=== PATIENT | female | born 1985 | race African-American/Black ===

== ENCOUNTER 2021-11-12 07:16 | Inpatient (IN) ==
--- NOTE | 2021-11-10 14:18 | Anesthesiology Consultation ---
Date of Service November 10, 2021 Assessment & Plan (1) Encounter for pre-operative examination: - COVID screening: Per supplier quality specialist on 11/10/2021: Travel screen negative, no known COVID-19 positive contacts or current COVID-19 related symptoms in past 2 weeks. Patient vaccinated. Surgeon arranging preop COVID testing, scheduled 11/10/2021. Awaiting results. Chart Review Chart Review: entry level web developer initiated History Surgery Operation Date: 11/12/21 07:30 Proposed Procedures p Section (Delivery of Baby Through Abdominal Incision) - Jennifer Ndiaye MD, FACOG Height/Weight Height: 5 ft 2.99 in Weight: 109.769 kg Allergies Allergy/AdvReac Type Severity Reaction Status Date / Time No Known Allergies Allergy Verified 11/10/21 10:46 Medications Home Medications Medication Instructions Recorded Confirmed Last Taken vits no.124-ferrous fum 1 tab PO QAM 04/09/21 11/10/21 04/09/21 27 mg iron-folic acid 800 mcg tablet ( Vitamin) aspirin 81 mg tablet,delayed 81 mg PO UD PRN 07/02/21 11/10/21 Unknown release (Adult Aspirin Regimen) Past Medical History Medical History (Updated 11/10/21 @ 14:17 by Albania Camejo PA-C) Cervical polyp High risk HPV infection History of chicken pox History of COVID-11 August 2020. mild symptoms Hx of tuberculosis 2018, treated for ~6 months, no problems current. Prior complicated by PIH, antepartum Past Family History Family History Mother Hypertension Other No family history of adverse response to anesthesia Denies family history of Ovarian cancer Breast cancer Colorectal cancer Past Surgical History Surgical History (Updated 11/10/21 @ 14:17 by Albania Camejo PA-C) H/O section History of unilateral salpingectomy Right (due to mass), via laparotomy Previous delivery affecting , antepartum Social History Smoking Status: Never smoker Do You Dip or Chew Tobacco: No Hx Alcohol Use: No Hx Substance Use: No substance use type: does not use
--- NOTE | 2021-11-11 23:10 | History & Physical Report ---
Date of Service November 11, 2021 Assessment & Plan (1) Previous delivery affecting , antepartum: Plan: IUP at 39 weeks, breech presentation wiht prior section for breech presentation history of gestational HTN- but normotensive this The procedure and it's risks are reviewed with the patient and her and their questions were answered to their satisfaction and they are willing to proceed . History of Present Illness Primary Care Provider: [facility] patient is a 35 yo -lao female EDC 11/19/21 who presents at 39 weeks for repeat section. first section was done in [facility] for breech presentation. Because operative reports are not available , she is not a candidate for a trial of labor. this infant is also in breech presentation at this time. has also been complicated by AMA, and HGSIL. She had gestational HTN with her first and has been on low dose aspirin as a result. BP has been normal this . Allergies Allergy/AdvReac Type Severity Reaction Status Date / Time No Known Allergies Allergy Verified 11/11/21 13:24 Home Medications Medication Instructions Recorded Confirmed Type vits no.124-ferrous fum 1 tab PO QAM 04/09/21 11/11/21 History 27 mg iron-folic acid 800 mcg tablet ( Vitamin) aspirin 81 mg tablet,delayed 81 mg PO UD PRN 07/02/21 11/11/21 History release (Adult Aspirin Regimen) Patient History Medical History (Updated 11/10/21 @ 14:17 by Albania Camejo PA-C) Cervical polyp High risk HPV infection History of chicken pox History of COVID-11 August 2020. mild symptoms Hx of tuberculosis 2018, treated for ~6 months, no problems current. Prior complicated by PIH, antepartum Surgical History (Updated 11/10/21 @ 14:17 by Albania Camejo PA-C) H/O section History of unilateral salpingectomy Right (due to mass), via laparotomy Previous delivery affecting , antepartum Family History Mother Hypertension Other No family history of adverse response to anesthesia Denies family history of Ovarian cancer Breast cancer Colorectal cancer Social History (Updated 04/16/21 @ 14:24 by Tami Mack) Smoking Status: Never smoker Second Hand Exposure: No; Hx Alcohol Use: No Hx Substance Use: No Preferred Language: Slovak Communication Ability: Effective Glue Drier Operator Required: No Beliefs That Will Affect Care: None marital status: marital status details: Florentino (38) Current Living Situation: Family current occupational status: student current occupation: PhD student [employer] Feels Safe at Home: Yes Assistive Devices: None Review of Systems All systems reviewed & are unremarkable except as noted in HPI & below Physical Exam Constitutional: WD/WN, vitals as above Respiratory: normal respiratory effort, lungs clear to auscultation Cardiovascular: RRR, no murmur, no edema Psychiatric: A+Ox3, euthymic affect Genitourinary: OB Exam Abdomen: + fundal height (term) and + breech OB Exam Monitor Tracing: + external FHT monitor used, + external uterine monitor used, + category I and + normal FHT variability NST today doesn't meet criteria for reactive but BPP is 8/8 Coding Level of Care Code None Diagnoses Previous delivery affecting , antepartum O34.219
[2021-11-12] MEDS ORDERED: LACTATED RINGER'S 1,000 ML IV SCH ×2 (07:30→08:30)
[2021-11-12] MEDS ORDERED: CITRIC ACID/SODIUM CITRATE 15 ML UDC PO SCH (07:45)
[2021-11-12 08:12] LABS: Basophils # (auto) 0.01 K/uL (0-0.2); Basophils % (auto) 0.2 %; Eosinophils # (auto) 0.05 K/uL (0-0.5); Eosinophils % (auto) 0.8 %; Hematocrit (blood only) 36.9 % (37-47); Hemoglobin 12.9 g/dL (12.0-16.0); Immature Granulocytes # (auto) 0.03 K/uL (0.00-0.02); Immature Granulocytes % (auto) 0.5 %; Lymphocytes % (auto) 31.6 %; Mean Corpuscular Hemoglobin 30.9 pg (25-34); Mean Corpuscular Volume 88.5 fL (80-100); Mean Platelet Volume 9.2 fL (7.4-10.4); Monocytes % (auto) 9.5 %; Neutrophils # (auto) 3.64 K/uL (1.4-6.5); Neutrophils % (auto) 57.4 %; Platelet Count 248 K/uL (130-400); RDW Coefficient of Variation 13.2 % (11.5-14.5); RDW Standard Deviation 42.8 fL (36.4-46.3); Red Blood Count 4.17 M/uL (4.2-5.4); White Blood Count 6.33 K/uL (4.8-10.8)
--- NOTE | 2021-11-12 09:33 | History & Physical Bridge Note ---
Date of Service November 12, 2021 History & Physical Bridge Note I have examined the patient, reviewed the History & Physical and in the interval since the performance of the History & Physical I have noted the following changes of clinical significance: no changes noted
[2021-11-12] MEDS ORDERED: fentaNYL citrate 100 MCG/2 ML VIAL ONE (09:38)
[2021-11-12] MEDS ORDERED: ONDANSETRON INJ 2 MG/ML 2 ML VIAL ONE (09:38)
[2021-11-12] MEDS ORDERED: MoRPHine SULFATE PF 1 MG/ML 10 ML AMP/VIAL ONE (09:38)
[2021-11-12] MEDS ORDERED: OXYTOCIN 10 UNITS/ML 10ML VIAL ONE (09:38)
[2021-11-12] MEDS ORDERED: NALOXONE HCL 0.08 MG in SYRINGE 1.8 ML IV PRN (10:51)
[2021-11-12] MEDS ORDERED: NALOXONE HCL 1 MG in SODIUM CHLORIDE 0.9% 1000ML 1,000 ML IV PRN (10:51)
[2021-11-12] MEDS ORDERED: PROMETHAZINE HCL 25 MG in SODIUM CHLORIDE 0.9% 50 ML IV PRN (10:51)
[2021-11-12] MEDS ORDERED: ePHEDrine sulfate 50 MG/ML AMP IV PRN (10:51)
[2021-11-12] MEDS ORDERED: ONDANSETRON INJ 2 MG/ML 2 ML VIAL IV PRN (10:51)
[2021-11-12] MEDS ORDERED: NALBUPHINE HCL INJ 10 MG/ML AMP IV PRN (10:51)
[2021-11-12] MEDS ORDERED: HYDROmorphone INJ 0.5 MG/0.5 ML SYR IV PRN (10:51)
[2021-11-12] MEDS ORDERED: ACETAMINOPHEN 1000 MG/100 ML IV IV PRN (10:51)
[2021-11-12] MEDS ORDERED: diphenhydrAMINE 50 MG/ML VIAL IV PRN (10:51)
[2021-11-12] MEDS ORDERED: LACTATED RINGER'S 500 ML IV PRN (10:51)
[2021-11-12] MEDS ORDERED: NALOXONE HCL 0.4 MG/1 ML VIAL/CARP IV PRN (10:51)
[2021-11-12] MEDS ORDERED: MoRPHine SULFATE PF 1 MG/ML 10 ML AMP/VIAL INT SPINAL ONE (10:51)
[2021-11-12] MEDS ORDERED: KETOROLAC 30 MG/ML VIAL ONE (10:57)
[2021-11-12] MEDS ORDERED: SODIUM CHLORIDE 0.9% 1000ML 1,000 ML IV SCH (11:00)
[2021-11-12] MEDS ORDERED: DC INTRASPINAL MORPHINE SCH (11:00)
[2021-11-12] MEDS ORDERED: NO NARCOTICS OR SEDATIVES SCH (11:00)
[2021-11-12] MEDS ORDERED: MAGNESIUM HYDROXIDE SUSP 30 ML UDC PO PRN (11:42)
[2021-11-12] MEDS ORDERED: DIPHTHERIA/TETANUS/PERTUSSIS 0.5 ML SYR/VIAL IM ONE (11:42)
[2021-11-12] MEDS ORDERED: SENNA 8.6 MG TAB PO PRN (11:42)
[2021-11-12] MEDS ORDERED: ACETAMINOPHEN 325 MG TAB PO PRN (11:42)
[2021-11-12] MEDS ORDERED: HYDROCORTISONE ACETATE 25 MG SUPP PR PRN (11:42)
[2021-11-12] MEDS ORDERED: BENZOCAINE 20% AER SPR 82.5 GM CAN EXT PRN (11:42)
--- NOTE | 2021-11-12 13:03 | Operative Report ---
PG Post Operative Report Pre & Post Diagnosis Operation Date: 11/12/21 09:30 Pre-Op Diagnosis: Prior section Breech presentation Post-Op Diagnosis: Same as Pre op I identified the patient and participated in the time-out.: Yes Procedure Operation Date: 11/12/21 09:30 Actual Procedures p Section (Delivery of Baby Through Abdominal Incision); Live female child at 1054(Bilateral) - Jennifer Ndiaye MD, FACOG Surgeon Jennifer Ndiaye MD, FACOG Induction Coordination Power Engineer Keysha Loving MD Estimated Blood Loss 300 Findings Consistent with Post-Op Diagnosis gravid uterus , normal ovaries bilaterally. left fallopian tube is normal, right fallopian tube is absent except for the distal fimbriated end. Specimens placenta to hold Drains Jason to straight drainage- clear urine at the end of the case Anesthesia Type Spinal Complications none Disposition Accompanied Patient To Recovery: Yes Indications Patient is a 35-year-old -0-0-1 female who presents at 39 weeks for repeat section. Her primary section was done in [facility] and therefore the operative report cannot be obtained. She is scheduled for repeat section and incidentally the baby is in breech presentation. Description of Procedure After the patient received adequat spinal anesthetic, she was prepped and draped in the usual sterile fashion. A low transverse skin incision was made approximately 3 cm superior to her prior scar per patient's request. The incision was extended to the fascia with the scalpel. The fascia was then divided transversely with Marroquin scissors. The edges were then grasped with Otoniel clamps and the underlying rectus muscles bluntly and sharply dissected off of the overlying fascia. The rectus muscles were bluntly divided in the midline and the underlying peritoneum elevated and entered sharply. The bladder was then taken down off the anterior surface of the uterus with Metzenbaum scissors. The lower uterine segment was noted to be thin but not transparent. A incision was made in the lower uterine segment with the scalpel and extended transversely. Membranes were ruptured for clear fluid. The was delivered from the double footling breech presentation with moderate fundal pressure. There was a tight nuchal cord which was reduced upon delivery. It was a female infant and she was crying and vigorous upon delivery. After 40 seconds the cord was clamped and cut and the handed off to Dr. Chu who was in attendance as director corporate sales. The placenta was then expressed intact with a three-vessel cord and the uterus is exteriorized to cover the clean lap sponge. The uterine cavity was explored found be free of any placental tissue or membranes. The uterus was then closed in 2 layers in a running locking imbricating fashion with 0 chromic. Hemostasis was noted to be satisfactory on the incision. The posterior cul-de-sac was suctioned for small amount of bloody fluid. The incision was examined once more continue to have excellent hemostasis. The uterus was placed back inside the abdominal cavity. There was noted some bleeding coming from the posterior and superior left rectus muscle. Bleeding there was controlled with Bovie. Hemostasis now appeared to be excellent. The rectus muscles were brought together in the midline with individual stitches of 0 chromic. The fascia was then closed in a running fashion with 0 Vicryl. After irrigating the adipose layer, the skin edges were reapproximated using a subcuticular stitch of 4-0 Vicryl. Urine was clear at the end of the case mother and infant tolerated the procedure well. I attest to the content of the Intraoperative Record and any orders documented therein. Any exceptions are noted below. OB Procedure Charges [id number]
[2021-11-12] MEDS: OXYTOCIN 20 UNITS in LACTATED RINGER'S 1,000 ML IV SCH ×2 (13:16→21:54)
[2021-11-12] MEDS: KETOROLAC 30 MG/ML VIAL IV PRN ×2 (15:54→21:52)
[2021-11-12] MEDS: SIMETHICONE 80 MG CHEW PO SCH ×2 (17:47→21:54)
[2021-11-12] MEDS: DOCUSATE SODIUM 100 MG CAP PO SCH (21:54)
[2021-11-13] MEDS: KETOROLAC 30 MG/ML VIAL IV PRN (03:40)
[2021-11-13] MEDS ORDERED: LACTATED RINGER'S 1,000 ML IV SCH (04:00)
[2021-11-13] MEDS ORDERED: ONDANSETRON INJ 2 MG/ML 2 ML VIAL IV PRN (04:53)
[2021-11-13] MEDS ORDERED: PROMETHAZINE HCL 25 MG in SODIUM CHLORIDE 0.9% 50 ML IV PRN (04:53)
[2021-11-13] MEDS ORDERED: diphenhydrAMINE Capsule 25 MG CAP PO PRN (04:53)
[2021-11-13] MEDS ORDERED: diphenhydrAMINE 50 MG/ML VIAL IV PRN (04:53)
--- NOTE | 2021-11-13 06:32 | Obstetrical Progress Note ---
Date of Service <Keysha InderDO - Last Filed: 11/13/21 07:38> November 13, 2021 Assessment & Plan <Keysha Loving DO - Last Filed: 11/13/21 07:38> (1) Encounter for care and examination after delivery: 35 yo post op day1 from c/s with prior c/s, doing well. -Continue routine post care. -vital signs reviewed and WNL (Tmax 36.6) -Blood Type B+, GBS-, Rubella immune -Encourage ambulation, monitor and control pain with Motrin, tylenol PRN, resume regular diet, monitor lochia -encourage breast feeding -hemoglobin 12.9 Day #:: 1 <Jennifer Ndiaye MD, FACOG - Last Filed: 11/13/21 11:12> (1) Encounter for care and examination after delivery: Subjective <Keyshadavid Loving DO - Last Filed: 11/13/21 07:38> Ambulation: ambulating normally Voiding: no voiding problems Passing Gas:: Yes Diet Tolerance:: regular diet Lochia:: Small Feeding Type:: breast feeding Current Pain Level(1-10): 3 Review of Systems Denies fever, chills, sweats Denies shortness of breath, difficulty breathing, chest pain, palpitations, chest pressure. Denies breast pain. Denies dysuria. Denies headache or changes in vision. Physical Exam <Keysha InderDO - Last Filed: 11/13/21 07:38> General: Alert, oriented. No acute distress. Cardiac: Regular rate and rhythm, no murmurs/rubs/gallops. Respiratory: Clear to auscultation bilaterally a/p, no wheezes/rales/rhonchi. No increased work of breathing. Symmetrical chest rise. No respiratory distress. Abdomen: Soft, nontender, nondistended. Bowel sounds present. Uterus: Uterine fundus firm, palpable at umbilicus. Surgical scar clean and healing well. Lower Extremities: No lower extremity edema or swelling. No deep calf pain. Geoff's negative bilaterally. Results & Data ([facility]) <Keysha Loving DO - Last Filed: 11/13/21 07:38> Vital Signs (Past 12 Hours) Vital Signs Temp Pulse Resp BP Pulse Ox 11/13/21 05:00 18 98 04/23/22 04:00 18 99 11/13/21 03:37 36.6 C 67 16 122/71 95 11/13/21 03:00 18 98 11/13/21 02:00 18 98 11/13/21 01:00 18 99 11/13/21 00:30 18 99 11/12/21 23:30 18 98 11/12/21 23:12 36.5 C 66 16 113/67 97 11/12/21 22:25 18 97 11/12/21 21:30 18 99 11/12/21 20:30 18 98 11/12/21 19:30 18 96 11/12/21 19:20 36.4 C L 56 L 16 111/69 98 <Jennifer Ndiaye MD, FACOG - Last Filed: 11/13/21 11:12> Co-Signing Physician Notes Resident Physician Supervision Note: I interviewed and examined the patient. Discussed with Dr. Loving and agree with findings and plan as documented in the note. Any exceptions or clarifications are listed here: [None] Documented By: Jennifer Ndiaye MD, FACOG Resident Activity Tracking <Keysha Loving DO - Last Filed: 11/13/21 07:38> Resident Involvement: Resident Care Provided Care Provided: Adult Hospital Medicine and OB Delivery
[2021-11-13 06:38] LABS: Basophils # (auto) 0.02 K/uL (0-0.2); Basophils % (auto) 0.3 %; Eosinophils # (auto) 0.11 K/uL (0-0.5); Eosinophils % (auto) 1.6 %; Hematocrit (blood only) 35.7 % (37-47); Hemoglobin 12.1 g/dL (12.0-16.0); Immature Granulocytes # (auto) 0.01 K/uL (0.00-0.02); Immature Granulocytes % (auto) 0.1 %; Lymphocytes # (auto) 1.93 K/uL (1.2-3.4); Lymphocytes % (auto) 27.8 %; Mean Corpuscular Hemoglobin 31.1 pg (25-34); Mean Corpuscular Hgb Conc 33.9 g/dL (32-36); Mean Corpuscular Volume 91.8 fL (80-100); Mean Platelet Volume 9.5 fL (7.4-10.4); Monocytes # (auto) 0.62 K/uL (0.11-0.59); Monocytes % (auto) 8.9 %; Neutrophils # (auto) 4.25 K/uL (1.4-6.5); Neutrophils % (auto) 61.3 %; Platelet Count 243 K/uL (130-400); RDW Coefficient of Variation 13.3 % (11.5-14.5); RDW Standard Deviation 44.1 fL (36.4-46.3); Red Blood Count 3.89 M/uL (4.2-5.4); White Blood Count 6.94 K/uL (4.8-10.8)
--- NOTE | 2021-11-13 08:04 | Anesthesiology Progress Note ---
Date of Service November 12, 2021 Anesthesia Post Procedure Vital Signs Vital Signs: Temp Pulse Pulse Resp BP BP Pulse Ox 11/13/21 07:35 36.8 C 67 16 143/82 H 11/13/21 05:00 18 98 11/13/21 04:00 18 99 11/13/21 03:37 36.6 C 67 16 122/71 95 11/13/21 03:00 18 98 11/13/21 02:00 18 98 11/13/21 01:00 18 99 11/13/21 00:30 18 99 11/12/21 23:30 18 98 11/12/21 23:12 36.5 C 66 16 113/67 97 11/12/21 22:25 18 97 11/12/21 21:30 18 99 11/12/21 20:30 18 98 11/12/21 19:30 18 96 11/12/21 19:20 36.4 C L 56 L 16 111/69 98 11/12/21 18:10 16 99 11/12/21 17:09 16 99 11/12/21 16:00 16 100 11/12/21 15:31 36.5 C 77 16 137/83 99 11/12/21 15:12 66 94 11/12/21 15:11 71 96 11/12/21 15:06 69 96 11/12/21 15:01 59 L 96 11/12/21 15:00 56 L 118/63 11/12/21 14:56 60 96 11/12/21 14:51 56 L 97 11/12/21 14:46 57 L 97 11/12/21 14:41 57 L 96 11/12/21 14:36 56 L 96 11/12/21 14:31 61 97 11/12/21 14:30 59 L 122/65 11/12/21 14:26 72 98 11/12/21 14:21 79 98 11/12/21 14:16 67 98 11/12/21 14:11 71 97 11/12/21 14:06 67 96 11/12/21 14:01 67 98 11/12/21 14:00 67 122/73 11/12/21 13:56 70 97 11/12/21 13:51 72 93 11/12/21 13:46 71 95 11/12/21 13:44 70 94 11/12/21 13:41 74 100 11/12/21 13:36 58 L 95 11/12/21 13:31 64 96 11/12/21 13:30 64 120/71 11/12/21 13:26 66 95 11/12/21 13:25 66 92 11/12/21 13:21 69 97 11/12/21 13:19 72 94 11/12/21 13:16 70 95 11/12/21 13:11 69 96 11/12/21 13:06 74 96 11/12/21 13:01 70 158/70 H 96 11/12/21 12:56 68 97 11/12/21 12:51 71 97 11/12/21 12:50 69 122/73 11/12/21 12:46 70 96 11/12/21 12:45 56 L 94 11/12/21 12:41 57 L 96 11/12/21 12:40 63 122/70 11/12/21 12:36 60 94 11/12/21 12:35 60 94 11/12/21 12:31 61 98 11/12/21 12:30 67 123/66 11/12/21 12:26 60 96 11/12/21 12:21 59 L 95 11/12/21 12:20 61 126/64 11/12/21 12:16 68 97 11/12/21 12:11 64 95 11/12/21 12:10 63 120/60 11/12/21 12:06 69 99 11/12/21 12:01 75 98 11/12/21 12:00 60 126/61 11/12/21 11:56 66 98 11/12/21 11:51 71 98 11/12/21 11:50 75 128/66 Pain Intensity Lower Abdomen: Pain Intensity: 1 Transfer of Care Handoff Completed per policy Notes Mental Status: alert / awake / arousable and participated in evaluation Nausea / Vomiting: adequately controlled Pain: adequately controlled Airway Patency, RR, SpO2: stable & adequate BP & HR: stable & adequate Hydration State: stable & adequate Neuraxial Anesthesia: was administered and sensory block is resolving Anesthetic Complications: no major complications apparent and Pt Satisfied with anesthetic care
[2021-11-13] MEDS: DOCUSATE SODIUM 100 MG CAP PO SCH (08:57)
[2021-11-13] MEDS: FERROUS SULFATE 325 MG TAB PO SCH (08:57)
[2021-11-13] MEDS: IBUPROFEN 600 MG TAB PO PRN ×2 (08:57→12:25)
[2021-11-13] MEDS: SIMETHICONE 80 MG CHEW PO SCH ×3 (08:57→17:10)
[2021-11-13] MEDS: PRENATAL VITAMIN 1 TAB PO SCH (08:57)
[2021-11-13] MEDS: oxyCODONE/ACETAMINOPHEN 5mg/325mg TAB PO PRN ×2 (16:44→20:45)
[2021-11-13] MEDS ORDERED: bisacodyL 5 MG TABEC PO SCH (20:00)
[2021-11-14] MEDS: oxyCODONE/ACETAMINOPHEN 5mg/325mg TAB PO PRN ×3 (00:07→08:35)
[2021-11-14] MEDS: DOCUSATE SODIUM 100 MG CAP PO SCH ×2 (00:07→08:34)
[2021-11-14] MEDS: SIMETHICONE 80 MG CHEW PO SCH ×2 (00:07→08:34)
[2021-11-14] MEDS: IBUPROFEN 600 MG TAB PO PRN ×3 (00:10→08:34)
[2021-11-14 01:31] VITALS: O2SAT 99
[2021-11-14 06:39] LABS: Hematocrit (blood only) 36.3 % (37-47); Hemoglobin 12.1 g/dL (12.0-16.0)
[2021-11-14] MEDS: FERROUS SULFATE 325 MG TAB PO SCH (08:34)
[2021-11-14] MEDS: PRENATAL VITAMIN 1 TAB PO SCH (08:34)
[2021-11-14 08:54] VITALS: BP 113/72; PULSE 59; TEMP 98.1
--- NOTE | 2021-11-14 09:21 | Obstetrical Progress Note ---
Date of Service November 14, 2021 Assessment & Plan (1) Encounter for care and examination after delivery: Recovered well, ready for d/c home with instructions reviewed Subjective Ambulation: ambulating normally Voiding: no voiding problems Passing Gas:: Yes Diet Tolerance:: regular diet Lochia:: Small Feeding Type:: breast feeding Physical Exam Constitutional WD/WN, vitals as above Eyes PERRL, conjunctivae normal, anicteric sclerae Neck normal visual inspection Respiratory normal respiratory effort and able to speak in complete sentences; no respiratory distress and no labored breathing Cardiovascular Rate/Rhythm: regular rate and regular rhythm Extremities: no edema Chest (Breasts) Chest: normal inspection of chest Gastrointestinal (Abdomen) Inspection/Auscultation: abdomen normal to inspection Soft, postgravid Psychiatric A+Ox3, euthymic affect Genitourinary OB Exam Abdomen: + fundal height Fundus: + firm and + relation to umbilicus (fundus just below umbilicus); not tender Results & Data ([facility]) Vital Signs (Past 12 Hours) Vital Signs Temp Pulse Resp BP Pulse Ox 11/14/21 07:30 98.1 F 59 L 16 113/72 11/14/21 00:00 97.9 F 74 18 114/71 99 11/13/21 22:56 98.2 F 74 16 118/69 98
[2021-11-14] MEDS ORDERED: bisacodyL 10 MG SUPP PR PRN (11:31)
--- NOTE | 2021-11-17 10:42 | Discharge Summary (DS) ---
DATE OF ADMISSION: 11/12/2021 DATE OF DISCHARGE: 11/14/2021 PRINCIPAL DIAGNOSES: Intrauterine at 39 weeks, prior section and breech presentat ion. POSTOPERATIVE DIAGNOSES: Intrauterine at 39 weeks, prior section and breech prese ntation, delivery of a viable female infant. PRINCIPAL PROCEDURE: Repeat low transverse cervical section. HISTORY AND HOSPITAL COURSE: The patient is a 35-year-old 2, para 1-0-0-1 white female, who presents at 39 weeks for repeat section. Her primary section was in [facility], and therefore, the operative report could not be obtained, but incidentally the baby is in a breech prese ntation, so she has been scheduled for a section because of unknown uterine scar and because of breech presentation. The section was done without any complications. She had an uncomp licated postop course, remained afebrile throughout her hospital stay. She was voiding and ambulatin g without difficulty and eating regular diet on her first postop day. Hemoglobin on admission was 12 .9, hematocrit 36.9 with a white count of 6330. First postop day, hemoglobin 12.1, hematocrit 35.7 wi th a white count of 6940. Second postop day, hemoglobin 12.1, hematocrit 36.3. The patient was sent home in good condition with prescriptions for Percocet 1 tablet p.o. q.4 hours p .r.n. pain, Motrin 600 mg p.o. q.4 hours p.r.n. pain. She is to be seen in the office in 6 weeks for a followup visit. She is to call for temperature of 101 degrees or higher, heavy vaginal bleeding, burning with urination, increased redness, drainage or pain in her incision, calf tenderness or any o ther concerns. Job ID: [id number]
== END 2021-11-14 13:25 | disposition home or self-care (01) | DRG 788 ==
LOC: 4S1 07:16 → EDSTATUS 07:30 → 4E1 15:30